=== PATIENT | female | born 1950 | race Asian ===

== ENCOUNTER → 2017-03-24 | Outpatient (CLI) | payer MEDICARE ==
[~2017-03-24] MED LIST: ASPI-621 PO; LISI40TA PO; METO25TA91 PO; SIMV40TA3 PO
== END | disposition home or self-care (01) ==
LOC: CFH 08:38
PROVIDERS: ATTEND Family Medicine
DX: I67.82 Cerebral ischemia (principal); R90.82 White matter disease, unspecified
CPT/HCPCS: 70551

== ENCOUNTER → 2017-06-03 | Outpatient (CLI) | payer MEDICARE | END | disposition home or self-care (01) | LOC: CFH 10:21 | PROVIDERS: ATTEND Otolaryngology | DX: J32.3 Chronic sphenoidal sinusitis (principal) | CPT/HCPCS: 70486 ==

== ENCOUNTER 2017-09-28 06:07 | Day surgery (SDC) | payer MEDICARE ==
[~2017-09-28] VITALS: Ht 157.5 cm; Wt 65.0 kg
[~2017-09-28 06:07] MED LIST changes: +ASPI-496 PO; +VITA400C43 PO
[2017-09-28] MEDS ORDERED: LACTATED RINGERS 1,000 ML IV SCH (06:52)
[2017-09-28] MEDS ORDERED: OXYMETAZOLINE NASAL SPRAY 0.05%, 15ML ONE (07:02)
[2017-09-28] MEDS ORDERED: EPINEPHRINE 1 MG/ML, 1ML ONE (07:02)
[2017-09-28] MEDS ORDERED: LIDOCAINE/PF 1%, 30ML ONE (07:02)
[2017-09-28] MEDS ORDERED: FLUORESCEIN OPHTHALMIC 1 MG STRIP ONE (07:02)
[2017-09-28] MEDS ORDERED: BACITRACIN OINT 500U/GM, 15 GM ONE (07:02)
[2017-09-28] MEDS ORDERED: EPINEPHRINE TOPICAL SOLN 1 MG/ML, 30ML ONE (07:02)
[2017-09-28 07:03] VITALS: BP 175/93
[2017-09-28] MEDS ORDERED: FENTANYL PF 250 MCG/5ML ONE (08:00)
[2017-09-28] MEDS ORDERED: MIDAZOLAM 1 MG/ML, 2ML ONE (08:00)
[2017-09-28] MEDS ORDERED: OXYcodone 5 MG/5 ML ORAL.SOL UDC PO PRN (08:30)
[2017-09-28] MEDS ORDERED: ACETAMINOPHEN 325 MG TABLET PO PRN (08:30)
[2017-09-28] MEDS ORDERED: ONDANSETRON ODT 8 MG PO PRN (08:30)
[2017-09-28] MEDS ORDERED: hydrALAzine 20 MG/ML, 1ML IV PRN (08:30)
[2017-09-28] MEDS ORDERED: PROMETHAZINE 25 MG/ML, 1ML IV PRN (08:30)
[2017-09-28] MEDS ORDERED: HYDROcodone/APAP 7.5-325MG/15ML UDC PO PRN (08:30)
[2017-09-28] MEDS ORDERED: hydrALAzine 20 MG/ML, 1ML ONE (09:57)
[2017-09-28] MEDS ORDERED: LABETALOL 5MG/ML, 20ML ONE (10:19)
[2017-09-28] MEDS: LABETALOL 5MG/ML, 20ML IV PRN ×4 (10:21→11:11)
[2017-09-28] MEDS ORDERED: FENTANYL PF 100 MCG/2ML ONE (10:48)
[2017-09-28] MEDS: FENTANYL PF 100 MCG/2ML IV PRN ×2 (10:49→11:12)
[2017-09-28] MEDS ORDERED: OXYcodone 5 MG/5 ML ORAL.SOL UDC ONE (10:56)
[2017-09-28] MEDS ORDERED: ACETAMINOPHEN 650 MG/20.3 ML UDC ONE (10:56)
[2017-09-28] MEDS ORDERED: DEXAMETHASONE 4 MG/ML, 1ML ONE (10:59)
[2017-09-28] MEDS ORDERED: ROCURONIUM 10 MG/ML,10ML ONE (10:59)
[2017-09-28] MEDS ORDERED: CEFAZOLIN 1,000 MG ONE (10:59)
[2017-09-28] MEDS ORDERED: SUCCINYLCHOLINE 20 MG/ML, 10ML ONE (10:59)
[2017-09-28] MEDS ORDERED: PROPOFOL 10 MG/ML, 20ML ONE (10:59)
== END 2017-09-28 13:15 ==
LOC: OUT 06:07
PROVIDERS: ATTEND Otolaryngology
DX: J32.3 Chronic sphenoidal sinusitis (principal); B47.0 Eumycetoma; I10 Essential (primary) hypertension
CPT/HCPCS: 31255; 31256; 31288; 61782; 87070; 87075; 87077; 87102; 87205; 88304; 88305; 88312; J0171; J0330; J0360; J0690; J1100; J2250; J2704; J3010; J3490; J7120; 87186

== ENCOUNTER → 2017-10-29 | Outpatient (CLI) | payer MEDICARE | END | disposition home or self-care (01) | LOC: CFH 15:31 | PROVIDERS: ATTEND Internal Medicine Cardiovascular Disease | DX: I05.9 Rheumatic mitral valve disease, unspecified (principal); I10 Essential (primary) hypertension; E78.5 Hyperlipidemia, unspecified | CPT/HCPCS: 0399T; 93306 ==

== ENCOUNTER → 2018-05-27 | Outpatient (CLI) | payer MEDICARE ==
[~2018-05-27] MED LIST changes: -ASPI-621 PO; +ASPI81TA45 PO
== END | disposition home or self-care (01) ==
LOC: CFH 10:39
PROVIDERS: ATTEND Family Medicine
DX: Z12.31 Encounter for screening mammogram for malignant neoplasm of breast (principal)
CPT/HCPCS: 77067

== ENCOUNTER → 2019-06-01 | Outpatient (CLI) | payer MEDICARE ==
[~2019-06-01] MED LIST changes: +VITAMIN C
== END | disposition home or self-care (01) ==
LOC: CFH 11:45
PROVIDERS: ATTEND Licensed Practical Nurse
DX: Z12.31 Encounter for screening mammogram for malignant neoplasm of breast (principal); N64.89 Other specified disorders of breast; N63.0 Unspecified lump in unspecified breast
CPT/HCPCS: 77063; 77067